=== PATIENT | female | born 1995 | race Caucasian/White ===

== ENCOUNTER 2022-05-26 07:33 | Inpatient (IN) ==
--- NOTE | 2022-05-26 08:02 | History & Physical Report ---
Date of Service May 26, 2022 Assessment & Plan (1) Elective induction of labor planned: (2) Gestational diabetes mellitus (GDM) affecting : (3) Need for rhogam due to Rh negative mother: Plan - Patient admitted to labor and delivery for initiation of medical induction of labor - Patient is at 3/80/-2 w/ evidence of irregular contractions, thus oxytocin augmentation of labor will be started per protocol - Once contractions are progressing, will consider ROM - Will anticipate epidural as contractions arise - Rh- mother, pend infant labs post-delivery, Rhogam as indicated - GDM: Diet controlled - Labs pending Admission and Anticipated Discharge Date Admission Date: May 26, 2022 History of Present Illness Chief Complaint: Induction Primary Care Provider: NO PCP Karely is a 26F currently at 40 5/7 with LORENA 05/21/22 determined by US (LMP 07/31/21) who presents to L&D for induction of labor. Complications: Rh negative mother, GDM diet controlled Reason for Induction/: Post-date Movement: Yes Fluid Loss/ROM: None Bloody show/discharge: Light spotting since cervix check in office Contractions: Irregular, yesterday since cervix check External FHT and uterine monitor: Category 1, tracing reactive, good FHT variability (+acel/-dcel), average 150, irregular contractions Last OB appointment: 05/25, regular care Change Control Manager: No abnormal pap, no STI hx Labs: Blood Type: A- Antibody Screen: Negative Hg/Hct (today): Pending WBC/Plt (today): Pending Rubella: Immune RPR: Non-reactive Gonorrhea: Negative Chlamydia: Negative HIV: Negative HbSAg: Negative GBS: Negative Cff-DNA: Declined Allergies Allergy/AdvReac Type Severity Reaction Status Date / Time No Known Allergies Allergy Verified 05/25/22 12:57 Home Medications Medication Instructions Recorded Confirmed Type prenat.vits,shameka,kcy-bqby-huzue 1 tab PO DAILY 10/10/21 05/26/22 History acetone (urine) test (Ketone Urine #50 ea 03/16/22 05/25/22 Rx Test strips) blood sugar diagnostic (OneTouch #150 ea 03/16/22 05/25/22 Rx Verio test strips) blood-glucose meter (OneTouch #1 ea 03/16/22 05/25/22 Rx Verio Reflect Meter) lancets 33 gauge (PattiTouch Jordyica #150 ea 03/16/22 05/25/22 Rx Lancets) Patient History Medical History (Updated 05/26/22 @ 09:43 by Carmela Greene DO) History of chicken pox Shingles Surgical History No history of previous surgery Family History Grandmother (Maternal) Breast cancer Grandfather (Paternal) Diabetes Denies family history of Ovarian cancer Colorectal cancer Social History (Updated 05/26/22 @ 07:50 by Patrizia Lozano, IRWIN) Smoking Status: Never smoker Hx Alcohol Use: No Hx Substance Use: No Preferred Language: Malay Communication Ability: Effective Visual Impairment: No Limitations Sales Performance Manager Required: No Beliefs That Will Affect Care: None marital status: marital status details: Bony Brewer(28) [phone] Current Living Situation: Spouse Current Living Situation Comment: lives with spouse, cats-spouse changing litter current occupational status: employed and unemployed current occupation: [employer]. Other Information That Helps Us Care for You: No Feels Safe at Home: Yes Safety Concerns: Feels Safe At This Time Assistive Devices: None Review of Systems - Denies fever, chills, sweats - Denies dyspnea or pleuritic pain - Denies chest pain, palpitations, or pressure - Denies breast pain - Denies dysuria - Denies headache or visual changes Physical Exam Physical Exam: General: Alert, oriented. No acute distress. Cardiac: Regular rate and rhythm, no murmurs/rubs/gallops. Respiratory: Clear to auscultation bilaterally a/p, no wheezes/rales/rhonchi. No increased work of breathing. Symmetrical chest rise. No respiratory distress. Abdomen: Gravid; reactive FHTs; Position: Vertex via Dharmesh Maneuver Pelvic: 3/[address]/-[address] Kerr Lower Extremities: No lower extremity edema or swelling. No deep calf pain. Farhat's negative bilaterally. Results & Data ([facility]) Vital Signs (Past 12 Hours) Vital Signs Pulse BP 05/26/22 07:48 100 H 120/74 Supervising Physician Co-Signing Physician Notes Resident Physician Supervision Note: I interviewed and examined the patient. Discussed with Dr. Aquino and agree with findings and plan as documented in the note. Any exceptions or clarifications ar e listed here: [ ] Documented By: Shahnaz Kerr MD, FACOG Resident Activity Tracking Resident Involvement: Resident Care Provided Care Provided: OB Delivery
[2022-05-26] MEDS ORDERED: LIDOCAINE 1% LOCAL 20 ML VIAL INFIL PRN (08:32)
[2022-05-26] MEDS ORDERED: OXYTOCIN 30 UNITS/500 ML BAG IV PRN ×3 (08:32→19:31)
[2022-05-26] MEDS: LACTATED RINGER'S 1,000 ML IV PRN ×3 (09:29→15:59)
[2022-05-26 09:40] LABS: Hematocrit (blood only) 38.6 % (34.1-44.9); Hemoglobin 12.8 g/dl (12.0-16.0); Mean Corpuscular Hemoglobin 28.3 pg (25.0-34.0); Mean Corpuscular Hgb Conc 33.2 g/dL (32.0-36.0); Mean Corpuscular Volume 85.2 fL (80.0-100.0); Mean Platelet Volume 10.3 fL (9.4-12.3); Platelet Count 292 K/uL (130-400); RDW Coefficient of Variation 13.4 % (11.5-14.5); RDW Standard Deviation 41.4 fL (36.4-46.3); Red Blood Count 4.53 M/uL (3.93-5.22); White Blood Count 12.27 K/ul (4.8-10.8)
[2022-05-26] MEDS ORDERED: ePHEDrine sulfate 50 MG/ML AMP ONE (11:34)
[2022-05-26] MEDS ORDERED: SODIUM CHLORIDE 0.9% INJ 10 ML VIAL ONE (11:34)
[2022-05-26] MEDS ORDERED: fentaNYL citrate 100 MCG/2 ML VIAL ONE (11:34)
[2022-05-26] MEDS ORDERED: LIDOCAINE 2%/EPINEPHRINE 1:200,000 20 ML SDV ONE (11:35)
[2022-05-26] MEDS ORDERED: fentaNYL 2MCG/ML ROPIVACAINE 1.25MG/ML 100 ML BAG EPI ONE (11:35)
[2022-05-26] MEDS ORDERED: BUPIVACAINE 0.25% 30 ML VIAL ONE (11:35)
[2022-05-26] MEDS ORDERED: NALOXONE HCL 0.4 MG/1 ML VIAL/CARP IV PRN (13:06)
[2022-05-26] MEDS ORDERED: diphenhydrAMINE 50 MG/ML VIAL IV PRN (13:06)
[2022-05-26] MEDS ORDERED: ONDANSETRON INJ 2 MG/ML 2 ML VIAL IV PRN (13:06)
[2022-05-26] MEDS ORDERED: NALOXONE HCL 1 MG in SODIUM CHLORIDE 0.9% 1000ML 1,000 ML IV PRN (13:06)
[2022-05-26] MEDS ORDERED: ePHEDrine sulfate 50 MG/ML AMP IV PRN (13:06)
[2022-05-26] MEDS ORDERED: fentaNYL 2MCG/ML ROPIVACAINE 1.25MG/ML 100 ML BAG EPI PRN (13:06)
[2022-05-26] MEDS ORDERED: NALBUPHINE HCL INJ 10 MG/ML AMP IV PRN (13:06)
[2022-05-26] MEDS ORDERED: PROMETHAZINE HCL 6.25 MG in SODIUM CHLORIDE 0.9% 50 ML IV PRN (13:06)
--- NOTE | 2022-05-26 13:06 | Anesthesiology Consultation ---
Date of Service May 26, 2022 Assessment & Plan Chart Review Chart Review: Patient NOT seen in Pre Admission Testing and Acceptable Risk for Labor Epidural Consults Requested none ASA ASA2 Proposed Anesthesia Anesthesia Type: Labor Epidural Risk / Benefits Reviewed With: PT / POA / Parent / Guardian, Accepts Plan and Informed Consent Obtained History Height/Weight Height: 5 ft 5 in Weight: 82.554 kg Allergies Allergy/AdvReac Type Severity Reaction Status Date / Time No Known Allergies Allergy Verified 05/25/22 12:57 Medications Home Medications Medication Instructions Recorded Confirmed Last Taken prenat.vits,shameka,jtn-gwjw-htvpx 1 tab PO DAILY 10/10/21 05/26/22 05/25/22 acetone (urine) test (Ketone Urine #50 ea 03/16/22 05/25/22 Unknown Test strips) blood sugar diagnostic (OneTouch #150 ea 03/16/22 05/25/22 Unknown Verio test strips) blood-glucose meter (OneTouch #1 ea 03/16/22 05/25/22 Unknown Verio Reflect Meter) lancets 33 gauge (OneTouch Delica #150 ea 03/16/22 05/25/22 Unknown Lancets) Active Medications Generic Name Dose Route Start Last Admin Trade Name Freq PRN Reason Stop Dose Admin Lactated Ringer's 1,000 mls @ 125 mls/hr 05/26/22 08:32 05/26/22 12:45 Lr IV 05/28/22 08:31 125 mls/hr .Q8H PRN Infusion L&D Protocol Protocol Oxytocin 30 units in 500 mls @ 3 mls/hr 05/26/22 08:32 05/26/22 10:03 Pitocin IV 05/28/22 08:31 0.18 units/hr .Q24H PRN 3 mls/hr Labor Induction/Augmentation Titration Protocol 0.18 UNITS/HR Past Medical History Medical History (Updated 05/26/22 @ 09:43 by Carmela Greene DO) History of chicken pox Shingles Exercise / Class Metabolic Activity II 4-5 Yardwork/Stairs/Walk up hill Past Family History Family History Grandmother (Maternal) Breast cancer Grandfather (Paternal) Diabetes Denies family history of Ovarian cancer Colorectal cancer Past Surgical History Surgical History No history of previous surgery Past Anesthesia History No Hx of Anesthesia Complications and No Family Hx of Anesthesia Complications History of PONV No Hx of PONV and No Hx of Motion Sickness Social History Smoking Status: Never smoker Hx Alcohol Use: No Hx Substance Use: No Physical Exam Vital Signs Last Vital Signs Temp 36.7 C 05/26/22 11:20 Pulse 98 H 05/26/22 13:00 Resp 18 05/26/22 12:21 BP 95/60 L 05/26/22 13:00 Pulse Ox 99 05/26/22 13:00 ENMT Mouth: no dentition abnormality Thyromental Distance: > or= 3.5 Finger Breadths Mallampati Class: II Neck normal visual inspection Respiratory normal respiratory effort Auscultation: lungs clear to auscultation bilaterally Cardiovascular Rate/Rhythm: regular rate and regular rhythm Psychiatric Orientation: alert Testing Laboratory Results 05/26/22 09:09 Blood Type A Negative 05/26/22 09:09 Antibody Screen NEGATIVE 05/26/22 09:09 05/26/22 08:30 POC Glucose 81
--- NOTE | 2022-05-26 19:09 | Delivery Summary ---
Vaginal Delivery Summary Date of Service May 26, 2022 Vaginal Delivery Summary DIAGNOSES: 1. Ku intrauterine at 40w5d gestation. 2. Induction of Labor. 3. Group B Streptococcus Neg 4. Diet controlled gestational diabetes. PROCEDURE: Spontaneous vaginal delivery and repair of second-degree laceration. SURGEON: Shahnaz Kerr MD. UPHOLSTERY ESTIMATOR: Carmela Greene. ESTIMATED BLOOD LOSS: 400 mL. COMPLICATIONS: None. PLACENTA: Spontaneous and intact with a 3-vessel cord. DISPOSITION: Stable to labor and delivery. DESCRIPTION: The patient pushed well and brought the head to in DOA position. The 's head was allowed to deliver with contraction force and no further active pushing, with the perineum protected during this time. There was one loop of nuchal cord. The left shoulder was anterior. The shoulders and body delivered without any difficulty, and the was placed on the maternal abdomen. It was vigorous and moving all extremities, and making respiratory efforts. The cord was doubly clamped by the MD and then cut by the FOB. The placenta delivered spontaneously and was noted to be intact and with a 3VC. The cervix, vagina and perineum were examined and were found to have a second degree laceration which was repaired in the usual manner using vicryl suture, including crown stitches to rebuild the perineal body. The fundus was firm and lochia minimal immediately after delivery. [facility] Vaginal Delivery Charge Vaginal Delivery Codes: 36548 global code for the antepartum, delivery, and post-
[2022-05-26] MEDS ORDERED: DIPHTHERIA/TETANUS/PERTUSSIS 0.5 ML SYR/VIAL IM ONE (19:31)
[2022-05-26] MEDS ORDERED: ACETAMINOPHEN 325 MG TAB PO PRN (19:31)
[2022-05-26] MEDS ORDERED: HYDROCORTISONE ACETATE 25 MG SUPP PR PRN (19:31)
[2022-05-26] MEDS ORDERED: BENZOCAINE 20% AER SPR 82.5 GM CAN EXT PRN (19:31)
[2022-05-26] MEDS ORDERED: bisacodyL 10 MG SUPP PR PRN (19:31)
--- NOTE | 2022-05-26 20:12 | Anesthesia Procedure Note ---
Date of Service May 26, 2022 Anesthesia Post Epidural Note Vital Signs Vital Signs: Temp Pulse Resp BP Pulse Ox 36.8 C 116 H 18 115/72 95 05/26/22 19:40 05/26/22 20:10 05/26/22 19:40 05/26/22 20:10 05/26/22 18:20 Pain Intensity Bilateral Abdomen: Pain Intensity: 0 Notes Mental Status: alert / awake / arousable Nausea / Vomiting: adequately controlled Pain: adequately controlled Airway Patency, RR, SpO2: stable & adequate BP & HR: stable & adequate Hydration State: stable & adequate Neuraxial Anesthesia: was administered and sensory block is resolving Anesthetic Complications: no major complications apparent and Pt Satisfied with anesthetic care Epidural: Removed without complications and With tip intact
[2022-05-26] MEDS: IBUPROFEN 600 MG TAB PO PRN (20:50)
[2022-05-26] MEDS: DOCUSATE SODIUM 100 MG CAP PO SCH (20:58)
[2022-05-27] MEDS: IBUPROFEN 600 MG TAB PO PRN ×4 (03:19→23:21)
--- NOTE | 2022-05-27 07:22 | Obstetrical Progress Note ---
Date of Service May 27, 2022 Assessment & Plan (1) Elective induction of labor planned: (2) Gestational diabetes mellitus (GDM) affecting : (3) Need for rhogam due to Rh negative mother: Plan - Rh- mother, pend labs post-delivery, Rhogam as indicated Subjective Ambulation: ambulating normally Voiding: no voiding problems Passing Gas:: Yes Diet Tolerance:: regular diet Lochia:: Small Feeding Type:: breast feeding Physical Exam Constitutional WD/WN, vitals as above Eyes PERRL, conjunctivae normal, anicteric sclerae Neck normal visual inspection Respiratory normal respiratory effort and able to speak in complete sentences; no respiratory distress and no labored breathing Cardiovascular Rate/Rhythm: regular rate and regular rhythm Extremities: no edema Chest (Breasts) Chest: normal inspection of chest Gastrointestinal (Abdomen) Inspection/Auscultation: abdomen normal to inspection Soft, postgravid Psychiatric A+Ox3, euthymic affect Genitourinary OB Exam Abdomen: + fundal height Fundus: + firm and + relation to umbilicus (fundus just below umbilicus); not tender Results & Data ([facility]) Vital Signs (Past 12 Hours) Vital Signs Temp Pulse Pulse Resp BP BP Pulse Ox 05/27/22 02:30 98.2 F 100 H 18 108/71 05/27/22 00:05 98.6 F 105 H 16 106/70 97 05/26/22 21:20 98.6 F 114 H 20 109/71 96 05/26/22 20:40 98.6 F 16 05/26/22 20:10 18 05/26/22 19:40 98.2 F 18 05/26/22 19:25 16 05/26/22 20:55 123 H 116/63 05/26/22 20:40 134 H 116/65 05/26/22 20:25 109 H 117/73 05/26/22 20:10 116 H 115/72 05/26/22 19:55 114 H 106/67 05/26/22 19:40 103 H 116/64 05/26/22 19:28 107 H 119/56 L 05/26/22 19:27 126 H 172/63 H O2 Del Method 05/27/22 02:30 05/27/22 00:05 Room Air 05/26/22 21:20 Room Air 05/26/22 20:40 05/26/22 20:10 05/26/22 19:40 05/26/22 19:25 05/26/22 20:55 05/26/22 20:40 05/26/22 20:25 05/26/22 20:10 05/26/22 19:55 05/26/22 19:40 05/26/22 19:28 05/26/22 19:27
[2022-05-27 07:47] LABS: Hemoglobin 11.2 g/dl (12.0-16.0); Mean Corpuscular Hemoglobin 28.3 pg (25.0-34.0); Mean Corpuscular Hgb Conc 32.9 g/dL (32.0-36.0); Mean Corpuscular Volume 85.9 fL (80.0-100.0); Mean Platelet Volume 10.1 fL (9.4-12.3); Platelet Count 228 K/uL (130-400); RDW Coefficient of Variation 13.6 % (11.5-14.5); RDW Standard Deviation 42.1 fL (36.4-46.3); Red Blood Count 3.96 M/uL (3.93-5.22); White Blood Count 14.92 K/ul (4.8-10.8)
[2022-05-27] MEDS: PRENATAL VITAMIN 1 TAB PO SCH (08:17)
[2022-05-27] MEDS: DOCUSATE SODIUM 100 MG CAP PO SCH ×2 (08:17→19:38)
[2022-05-27] MEDS ORDERED: bisacodyL 5 MG TABEC PO SCH (20:00)
[2022-05-28 06:33] LABS: Hematocrit (blood only) 31.6 % (34.1-44.9); Hemoglobin 10.5 g/dl (12.0-16.0)
[2022-05-28] MEDS: DOCUSATE SODIUM 100 MG CAP PO SCH (09:15)
[2022-05-28] MEDS: PRENATAL VITAMIN 1 TAB PO SCH (09:15)
--- NOTE | 2022-05-28 13:01 | Obstetrical Progress Note ---
Date of Service May 28, 2022 Assessment & Plan (1) Encounter for care and examination after delivery: Day 2 status post vaginal delivery. Patient is a doing well and stable for discharge. Subjective Ambulation: ambulating normally Voiding: no voiding problems Passing Gas:: Yes Diet Tolerance:: regular diet Lochia:: Moderate Feeding Type:: breast feeding Physical Exam Constitutional WD/WN, vitals as above Respiratory normal respiratory effort; no respiratory distress and no labored breathing Gastrointestinal (Abdomen) Inspection/Auscultation: abdomen normal to inspection; abdomen not distended Percussion/Palpation: abdomen soft; abdomen nontender, no guarding and abdomen not rigid Genitourinary OB Exam Abdomen: + fundal height Fundus: + firm and + relation to umbilicus (Below); not tender or not boggy Results & Data ([facility]) Vital Signs (Past 12 Hours) Vital Signs Temp Pulse Resp BP 05/27/22 23:20 36.6 C 105 H 18 119/80
== END 2022-05-28 11:05 | disposition home or self-care (01) | DRG 807 ==
LOC: 4S1 07:33 → 4E2 21:15
DX: O48.0 Post-term pregnancy; O24.420 Gestational diabetes mellitus in childbirth, diet controlled; Z37.0 Single live birth; O69.81X0 Labor and delivery complicated by cord around neck, without compression, not applicable or unspecified; O26.893 Other specified pregnancy related conditions, third trimester; Z3A.40 40 weeks gestation of pregnancy; Z67.11 Type A blood, Rh negative; O70.1 Second degree perineal laceration during delivery